=== PATIENT | female | born 1980 | race Caucasian/White ===

== ENCOUNTER 2019-06-11 02:44 | Emergency (ER) | payer SELFPAY ==
[~2019-06-11] VITALS: Ht 162.6 cm; Wt 68.0 kg
[2019-06-11] MEDS ORDERED: HYDROCODONE/ACETAMINOPHEN 5/325MG TABLET PO ONE (04:30)
[2019-06-11 05:37] VITALS: BP 132/82
== END 2019-06-11 05:42 | disposition home or self-care (01) ==
LOC: ER 02:44
DX: S13.4XXA Sprain of ligaments of cervical spine, initial encounter (principal); E11.9 Type 2 diabetes mellitus without complications; V49.88XA Car occupant (driver) (passenger) injured in other specified transport accidents, initial encounter; Y93.89 Activity, other specified; Y92.89 Other specified places as the place of occurrence of the external cause; Y99.8 Other external cause status
CPT/HCPCS: 72040; 99283